=== PATIENT | male | born 1970 | race Caucasian/White ===

== ENCOUNTER 2017-12-24 14:40 | Emergency (ER) | payer BC ==
[2017-12-24] MEDS ORDERED: Ketorolac Tromethamine 60 MG/2 ML VIAL ONE (14:53)
--- NOTE | 2017-12-24 17:08 | RAD ---
LEFT ANKLE THREE VIEWS 12/24/17 While there is no gross fracture apparent, there is an equivocal line in the lateral malleolus on he e views. There is marked lateral swelling. The ankle joint itself appears intact. IMPRESSION: Marked lateral swelling. Equivocal line in the lateral malleolus. It might be best to followup with a nother film in 7 to 10 days. Code T POS: HOME
== END 2017-12-24 15:30 | disposition home or self-care (01) ==
LOC: BURERS 14:40
DX: S82.65XA Nondisplaced fracture of lateral malleolus of left fibula, initial encounter for closed fracture (principal); I10 Essential (primary) hypertension; F17.210 Nicotine dependence, cigarettes, uncomplicated; X50.1XXA Overexertion from prolonged static or awkward postures, initial encounter
CPT/HCPCS: 96372; J1885